=== PATIENT | male | born 2005 | race Hispanic/Latino ===

== ENCOUNTER 2025-05-22 09:30 | Day surgery (SDC) | payer OTHER ==
[~2025-05-22] VITALS: Ht 180.3 cm; Wt 100.9 kg
[2025-05-22] VITALS (7 sets, daily range): BP systolic 112–130; BP diastolic 53–64; TEMP 98.1–99; O2SAT 94–97
[2025-05-22] MEDS: NS (Normal Saline) 0.9% 1,000 ML IV SCH (03:20)
[2025-05-22 10:10] LABS: BASO # 0.0 10^3/uL (0.0-0.2); BASO % 0.2 % (0.0-1.0); EOS # 0.1 10^3/uL (0.0-0.5); EOS % 0.7 % (0.0-3.0); LYMPH # 1.0 10^3/uL (1.5-5.0); LYMPH % 10.7 % (24.0-44.0); MONO # 0.7 10^3/uL (0.0-0.8); MONO % 7.2 % (2.0-8.0); NEUTROPHILS # 7.4 10^3/uL (1.5-8.5); NEUTROPHILS % 81.0 % (36.0-66.0); PLATELET COUNT, AUTOMATED 193 10^3/uL (150-450)
[2025-05-22] MEDS: ONDANSETRON 4MG/2ML VIAL IV ONE (10:10)
[2025-05-22] MEDS: NS (Normal Saline) 0.9% 1,000 ML IV ONE (10:10)
[2025-05-22 10:38] LABS: ETHYL ALCOHOL (ETHANOL) 0.004 % (0.000-0.010)
[2025-05-22 10:39] LABS: ALT/SGPT 19 U/L (7.0-40); AST/SGOT 21 U/L (<34); CALCIUM LEVEL 9.2 MG/DL (8.5-10.1); CARBON DIOXIDE LEVEL 27 MMOL/L (20-31); CHLORIDE LEVEL 103 MMOL/L (98-107); CREATININE FOR GFR 0.94 MG/DL (0.70-1.30); GLOMERULAR FILTRATION RATE > 90.0 (>60); POTASSIUM SERUM 3.8 MMOL/L (3.5-5.1); SODIUM LEVEL 141 MMOL/L (136-145)
[2025-05-22] MEDS ORDERED: ISOVUE-370 76% 100 ML VIAL As Ordered ONE (11:12)
[2025-05-22] MEDS ORDERED: HOME MED LIST COMPLETE! XX SCH (11:25)
[2025-05-22] MEDS: KETOROLAC 30 MG/ML 1 ML VIAL IV ONE (13:00)
[2025-05-22] MEDS: metroNIDAZOLE 500 MG in IV 1 EA IV ONE (13:20)
[2025-05-22] MEDS: cefTRIAXone SOD 1 GM in DEXTROSE 5% (D5W) ADV/MINI-BAG 50 ML IV ONE (13:20)
[2025-05-22] MEDS ORDERED: MIDAZOLAM INJ 2 MG/2 ML VIAL As Ordered ONE (13:35)
[2025-05-22] MEDS ORDERED: LIDOCAINE 2% 100 MG/5 ML SDV (FOR ANES.) As Ordered ONE (13:36)
[2025-05-22] MEDS ORDERED: ROCURONIUM BROMIDE 50MG/5ML VIAL As Ordered ONE (13:36)
[2025-05-22] MEDS ORDERED: SUGAMMADEX SODIUM 500 MG/5 ML VIAL As Ordered ONE (13:36)
[2025-05-22] MEDS ORDERED: KETOROLAC 30 MG/ML 1 ML VIAL As Ordered ONE (13:37)
[2025-05-22] MEDS ORDERED: ONDANSETRON 4MG/2ML VIAL As Ordered ONE (13:37)
[2025-05-22] MEDS ORDERED: dexAMETHasone 4 MG/ML 1 ML VIAL As Ordered ONE (13:37)
[2025-05-22] MEDS ORDERED: dexmedeTOMIDine (4 MCG/ML) 200 MCG/50 ML BTL As Ordered ONE (13:42)
[2025-05-22] MEDS: ZOSYN 3.375GM VIAL As Ordered ONE (14:43)
[2025-05-22] MEDS ORDERED: ACETAMINOPHEN 1000MG/100ML IV BAG As Ordered ONE (14:54)
[2025-05-22] MEDS ORDERED: ONDANSETRON 4MG/2ML VIAL IV PRN (15:30)
[2025-05-22] MEDS ORDERED: HYDROMORPHONE HCL 0.5 MG/0.5 ML SYRINGE IV PRN (15:30)
[2025-05-22] MEDS ORDERED: MORPHINE 4 MG/ML 1 ML VIAL IV PRN ×3 (15:35)
[2025-05-22] MEDS: LR 1,000 ML IV SCH (17:00)
[2025-05-22] MEDS: KETOROLAC 30 MG/ML 1 ML VIAL IV SCH (19:41)
[2025-05-22] MEDS: PIPERACILLIN/TAZOBACTAM SOD 3.375 GM in DEXTROSE 5% (D5W) ADV/MINI-BAG 50 ML IV SCH (21:39)
[2025-05-23 02:00] VITALS: BP 123/58; TEMP 98.2; O2SAT 97
[2025-05-23 06:05] VITALS: BP 127/60; TEMP 98.7; O2SAT 97
[2025-05-23] MEDS ORDERED: IBUP-359 PO (09:29)
[2025-05-23 10:09] VITALS: BP 123/59; TEMP 98.7; O2SAT 96
== END 2025-05-23 13:50 | disposition home or self-care (01) ==
LOC: M ED 09:30 → M SDC 09:31 → M MSPAV 16:48 → M SDC 05-23 13:50
PROVIDERS: ATTEND Surgery
DX: K35.80 Unspecified acute appendicitis (principal)
CPT/HCPCS: 44970; 74177; 80048; 80076; 82077; 83690; 85025; 88304; 99285; J0131; J0665; J1100; J1885; J2250; J2405; J2543; J2765; J3010; Q9967